=== PATIENT | female | born 1965 | race Caucasian/White ===

== ENCOUNTER → 2016-05-18 | Outpatient (CLI) | payer BC ==
[2016-05-18 10:31] LABS: APPEARANCE,URINE SLIGHTLY-CLOUDY; BILIRUBIN,URINE NEGATIVE (NEGATIVE); GLUCOSE, URINE NEGATIVE (NEGATIVE); KETONES,URINE NEGATIVE (NEGATIVE); LEUKOCYTE ESTERASE,URINE SMALL (NEGATIVE); NITRITE,URINE NEGATIVE (NEGATIVE); PROTEIN,URINE NEGATIVE (NEGATIVE); URINE SPECIFIC GRAVITY 1.021; UROBILINOGEN,URINE NEGATIVE mg/dL (<2.0)
[2016-05-18 10:34] LABS: ABSOLUTE LYMPHOCYTES (AUTO) 0.9 10^3/uL (0.5-4.7); ABSOLUTE MONOCYTES (AUTO) 0.3 10^3/uL (0.1-1.4); ABSOLUTE NEUT (AUTO) 12.1 10^3/uL (1.7-8.2); BASOPHILS % (AUTO) 0.1 % (0-2); HEMATOCRIT 41.3 % (36.0-47.0); HGB HCT DIFFERENCE -2.3; LYMPHOCYTES % (AUTO) 7.1 % (13-45); MEAN CORPUSCULAR HEMOGLOBIN 27.2 pg (27.0-33.4); MEAN CORPUSCULAR HGB CONC 31.6 g/dL (32.0-36.0); MEAN CORPUSCULAR VOLUME 86 fl (80-97); RED CELL DISTRIBUTION WIDTH 14.3 % (11.5-14.0); SEGMENTED NEUTROPHILS % (AUTO) 90.8 % (42-78); WHITE BLOOD COUNT 13.3 10^3/uL (4.0-10.5)
[2016-05-18 10:51] LABS: ANION GAP 14 (5-19); BLOOD UREA NITROGEN 17 mg/dL (7-20); CARBON DIOXIDE 21 mmol/L (22-30); CHLORIDE 107 mmol/L (98-107); CREATININE RESULT 0.73 mg/dL (0.52-1.25); GLUCOSE 126 mg/dL (75-110); POTASSIUM 4.8 mmol/L (3.6-5.0)
--- NOTE | 2016-05-18 14:58 | EKG REPORT ---
SEVERITY:- NORMAL ECG - SINUS RHYTHM : Confirmed by: Vivian Branch MD 18-May-2016 14:58:05
== END ==
LOC: OD 09:15
PROVIDERS: ATTEND Orthopaedic Surgery
DX: Z01.810 Encounter for preprocedural cardiovascular examination (principal); Z01.811 Encounter for preprocedural respiratory examination; Z01.818 Encounter for other preprocedural examination; M17.12 Unilateral primary osteoarthritis, left knee; Z79.899 Other long term (current) drug therapy
CPT/HCPCS: 36415; 71020; 80048; 81001; 85025; 93005; 93010

== ENCOUNTER 2016-06-27 08:21 | Inpatient (IN) | payer BC ==
[2016-06-15 10:37] LABS: APPEARANCE,URINE SLIGHTLY-CLOUDY; BILIRUBIN,URINE NEGATIVE (NEGATIVE); GLUCOSE, URINE NEGATIVE (NEGATIVE); KETONES,URINE NEGATIVE (NEGATIVE); LEUKOCYTE ESTERASE,URINE SMALL (NEGATIVE); NITRITE,URINE NEGATIVE (NEGATIVE); PROTEIN,URINE NEGATIVE (NEGATIVE); URINE SPECIFIC GRAVITY 1.018; UROBILINOGEN,URINE NEGATIVE mg/dL (<2.0)
[2016-06-15 10:40] LABS: HEMATOCRIT 39.8 % (36.0-47.0); HEMOGLOBIN 13.3 g/dL (12.0-15.5); HGB HCT DIFFERENCE 0.1; MEAN CORPUSCULAR HEMOGLOBIN 28.9 pg (27.0-33.4); MEAN CORPUSCULAR HGB CONC 33.3 g/dL (32.0-36.0); MEAN CORPUSCULAR VOLUME 87 fl (80-97); RED BLOOD COUNT 4.59 10^6/uL (3.72-5.28); RED CELL DISTRIBUTION WIDTH 14.8 % (11.5-14.0); WHITE BLOOD COUNT 9.8 10^3/uL (4.0-10.5)
[2016-06-15 10:43] LABS: ANION GAP 11 (5-19); BLOOD UREA NITROGEN 14 mg/dL (7-20); CALCIUM 9.6 mg/dL (8.4-10.2); CARBON DIOXIDE 27 mmol/L (22-30); CHLORIDE 105 mmol/L (98-107); CREATININE RESULT 0.84 mg/dL (0.52-1.25); GLUCOSE 102 mg/dL (75-110); POTASSIUM 4.3 mmol/L (3.6-5.0); SODIUM 142.7 mmol/L (137-145)
[~2016-06-27 08:21] MED LIST: BUPIVACAINE INJ/PF LIPOSOME/PF 266 MG/20 ML SDV INFIL PRN; CEFAZOLIN INJ 1 GM VIAL IV PRN; IBUPROFEN 800 MG in NORMAL SALINE 250 ML IV PRN; LACTATED RINGERS 1000 ML IV PRN; LANSOPRAZOLE 15 MG TAB.RAP.DR PO PRN; LIDOCAINE 0.5% INJ-PF (5 MG/ML) 50 ML SDV SUBCUT PRN; OXYCODONE HCL SR 10 MG TABLET PO PRN; SCOPOLAMINE HYDROBROMIDE 1.5 MG PATCH.TD72 TD PRN; VANCOMYCIN HCL 1,000 MG in DEXTROSE 5%-WATER 250 ML IV PRN
[2016-06-27] MEDS ORDERED: LIDOCAINE 2% INJ-PF (20 MG/ML) 10 ML AMPUL ONE (08:32)
[2016-06-27 09:18] LABS: PROTHROMBIN TIME 13.4 SEC (11.4-15.4)
[2016-06-27 09:19] LABS: PARTIAL THROMBOPLASTIN TIME 30.3 SEC (23.5-35.8)
[2016-06-27] MEDS ORDERED: FENTANYL CITRATE INJ/PF 100 MCG/2 ML AMPUL ONE (10:41)
[2016-06-27] MEDS ORDERED: MIDAZOLAM 2 MG/2 ML INJ ONE (10:41)
[2016-06-27] MEDS ORDERED: PROPOFOL INJ 200 MG/20 ML VIAL IV ONE (10:42)
[2016-06-27] MEDS ORDERED: DEXMEDETOMIDINE INJ 80 MCG/20 ML VIAL IV ONE (10:42)
[2016-06-27] MEDS ORDERED: EPHEDRINE SULFATE INJ 50 MG/1 ML AMPULE ONE (10:42)
[2016-06-27] MEDS ORDERED: TRANEXAMIC ACID INJ/PF 1,000 MG/10 ML SDV IV ONE ×3 (10:42→14:00)
[2016-06-27] MEDS ORDERED: THROMBIN (BOVINE) TOPICAL 20000 UNIT VIAL ONE (11:15)
[2016-06-27] MEDS ORDERED: BUPIVACAINE INJ/PF LIPOSOME/PF 266 MG/20 ML SDV ONE (11:15)
[2016-06-27] MEDS ORDERED: THROMBIN (BOVINE) TOPICAL 5000 UNIT VIAL ONE (11:16)
[2016-06-27] MEDS ORDERED: MEPERIDINE HCL/PF INJ 25 MG/1 ML DISP.SYRIN IV PRN (12:43)
[2016-06-27] MEDS ORDERED: PROMETHAZINE HCL INJ 25 MG/1 ML VIAL IV PRN ×2 (12:43)
[2016-06-27] MEDS ORDERED: DIPHENHYDRAMINE HCL 50 MG/ML VIAL IV PRN ×2 (12:43→13:25)
[2016-06-27] MEDS ORDERED: FENTANYL CITRATE INJ/PF 100 MCG/2 ML AMPUL IV PRN ×3 (12:43)
[2016-06-27] MEDS ORDERED: OXYCODONE-ACETAMINOPHEN 5-325 MG TABLET PO PRN ×2 (12:43)
[2016-06-27] MEDS ORDERED: MORPHINE SULFATE 10 MG/ML INJ IV PRN ×4 (12:43→13:25)
--- NOTE | 2016-06-27 13:24 | Operative Report ---
Operative Report DATE OF SURGERY: 06/27/16 PREOPERATIVE DIAGNOSIS: Right knee arthritis OPERATION: Right knee arthroplasty SURGEON: JONATHON PERDOMO ANESTHESIA: Spinal TISSUE REMOVED OR ALTERED: Bone to pathology ESTIMATED BLOOD LOSS: 150 PROCEDURE: Implants used: Femur: Striker #4 CR femur Tibia:, #3 tibia Tibial liner:, 13 mm CS insert Patella: 29 mm oval patella Procedure with the patient supine on the operating table the right the limb is prepped and draped in a sterile fashion. The limb was elevated for exsanguination and the tourniquet inflated to 280 torr. A standard midline median parapatellar approach the knee is taken. Access is gained to the femoral canal through the intercondylar notch. Intramedullary alignment instrumentation used to resect 10 mm of distal femur in 5 of valgus. Sizing guide indicated a size for femur. Appropriate cutting jig is then used to fashion anterior posterior and chamfer cuts. A trial reduction femurs performed and this is judged to be adequate. Attention was next turned to the tibia. Using an extra medullary alignment system 9 millimeters was resected off the lateral tibial plateau. This is sized to a size 3 tibia. A trial reduction was now performed with a 4 femur and 3 tibia using a 13 millimeters spacer. A lateral patellar release is performed. It is full extension and central patellofemoral tracking. The articular surface the patella was next resected using an oscillating saw. All trial implants were removed. Polymethylmethacrylate is mixed and used to cement the above implants in place. On adequate curing the cement excess cement was removed the tourniquet was deflated hemostasis obtained the wound is then closed in layers using interrupted Vicryl followed by mehdi. A sterile compressive dressing was applied and the patient returned to recovery room in satisfactory condition.
[2016-06-27] MEDS ORDERED: ONDANSETRON 4 MG TAB.RAPDIS PO PRN (13:25)
[2016-06-27] MEDS ORDERED: MAG HYDROX/AL HYDROX/SIMETH SUSP 30 ML UDCUP PO PRN (13:25)
[2016-06-27] MEDS ORDERED: ONDANSETRON HCL INJ/PF 4 MG/2 ML SDV IV PRN (13:25)
[2016-06-27] MEDS: FENTANYL CITRATE INJ/PF 100 MCG/2 ML AMPUL ONE ×2 (14:00→15:01)
[2016-06-27] MEDS: IBUPROFEN 800 MG in NORMAL SALINE 250 ML IV SCH (17:36)
[2016-06-27] MEDS: SENNOSIDES/DOCUSATE 8.6-50 MG 1 EACH TABLET PO SCH (17:37)
[2016-06-27] MEDS: AMLODIPINE BESYLATE 5 MG TABLET PO SCH (17:37)
[2016-06-27] MEDS: OXYCODONE HCL IR 5 MG TABLET PO PRN (19:42)
[2016-06-27] MEDS: RINGERS SOLUTION,LACTATED 1,000 ML IV PRN ×2 (21:14→22:53)
[2016-06-27] MEDS: RIVAROXABAN 10 MG TABLET PO SCH (21:15)
[2016-06-27] MEDS: OXYCODONE HCL SR 10 MG TABLET PO SCH (21:15)
[2016-06-27] MEDS: GABAPENTIN 300 MG CAPSULE PO SCH (21:15)
[2016-06-27] MEDS: MORPHINE SULFATE 10 MG/ML INJ IM PRN (22:55)
[2016-06-28] MEDS ORDERED: VANCOMYCIN HCL 1,000 MG in DEXTROSE 5%-WATER 250 ML IV ONE (01:30)
[2016-06-28] MEDS: IBUPROFEN 800 MG in NORMAL SALINE 250 ML IV SCH ×2 (01:56→10:03)
[2016-06-28] MEDS: MORPHINE SULFATE 10 MG/ML INJ IM PRN ×5 (04:15→23:50)
[2016-06-28] MEDS: LANSOPRAZOLE 30 MG TAB.RAP.DR PO SCH (05:13)
[2016-06-28 05:28] LABS: HEMATOCRIT 33.1 % (36.0-47.0); HEMOGLOBIN 10.9 g/dL (12.0-15.5); HGB HCT DIFFERENCE -0.4; MEAN CORPUSCULAR HEMOGLOBIN 28.8 pg (27.0-33.4); MEAN CORPUSCULAR HGB CONC 33.1 g/dL (32.0-36.0); MEAN CORPUSCULAR VOLUME 87 fl (80-97); RED CELL DISTRIBUTION WIDTH 14.5 % (11.5-14.0); WHITE BLOOD COUNT 17.4 10^3/uL (4.0-10.5)
[2016-06-28 05:57] LABS: ANION GAP 12 (5-19); BLOOD UREA NITROGEN 8 mg/dL (7-20); CALCIUM 8.5 mg/dL (8.4-10.2); CARBON DIOXIDE 24 mmol/L (22-30); CHLORIDE 102 mmol/L (98-107); CREATININE RESULT 0.67 mg/dL (0.52-1.25); GLUCOSE 120 mg/dL (75-110); POTASSIUM 3.8 mmol/L (3.6-5.0); SODIUM 137.9 mmol/L (137-145)
--- NOTE | 2016-06-28 07:14 | PDOC PROGRESS REPORT ---
Subjective Progress Note for:: 06/28/16 Subjective:: Patient complains of overwhelming pain Physical Exam Vital Signs: Temp Pulse Resp BP Pulse Ox 36.7 C 91 18 95/81 L 95 06/28/16 04:43 06/28/16 04:43 06/28/16 04:43 06/28/16 04:43 06/28/16 04:43 Intake & Output 06/27/16 06/28/16 06/29/16 06:59 06:59 06:59 Intake Total 6898 Output Total 4910 Balance 1988 General appearance: PRESENT: mild distress, obese Head exam: PRESENT: normocephalic Eye exam: PRESENT: EOMI Respiratory exam: PRESENT: unlabored Cardiovascular exam: PRESENT: RRR Pulses: PRESENT: +1 pedal pulses bilateral Vascular exam: PRESENT: normal capillary refill GI/Abdominal exam: PRESENT: soft Rectal exam: PRESENT: deferred Extremities exam: PRESENT: other - Right lower extremity dressing clean dry and intact. Distal neurovascular examinations intact. Neurological exam: PRESENT: alert, awake, oriented to person, oriented to place , oriented to time, oriented to situation, CN II-XII grossly intact. ABSENT: motor sensory deficit Psychiatric exam: PRESENT: appropriate affect, normal mood. ABSENT: homicidal ideation, suicidal ideation Skin exam: PRESENT: dry, intact, warm. ABSENT: cyanosis, rash Results Laboratory Results: 06/28/16 05:04 06/28/16 05:04 06/27/16 06/28/16 06/28/16 08:52 05:04 05:04 WBC 17.4 H RBC 3.80 Hgb 10.9 L Hct 33.1 L MCV 87 MCH 28.8 MCHC 33.1 RDW 14.5 H Plt Count 229 Sodium 137.9 Potassium 3.7 3.8 Chloride 102 Carbon Dioxide 24 Anion Gap 12 BUN 8 Creatinine 0.67 Est GFR ( Amer) > 60 Est GFR (Non-Af Amer) > 60 Glucose 120 H Calcium 8.5 Impressions: Knee X-Ray 06/27/16 13:26 IMPRESSION: SATISFACTORY POSTOPERATIVE RIGHT KNEE. Status: Imported from PACS Assessment & Plan - Diagnosis (1) Arthritis of right knee Is this a current diagnosis for this admission?: YesPlan: 50-year-old white female postop day 1 from right knee arthroplasty. She made limited progress with physical therapy, did not ambulate. Hematocrit remains above 33%. Plan will be for aggressive physical therapy today on weightbearing as tolerated basis. Anticipate discharge home tomorrow with home health nursing , home health physical therapy, we'll Walker, bedside commode. - Time Time Spent with patient: 15-24 minutes Anticipated discharge: Home with Homehealth Within: within 24 hours
[2016-06-28] MEDS: GABAPENTIN 300 MG CAPSULE PO SCH ×2 (10:01→21:37)
[2016-06-28] MEDS: CALCIUM CARBONATE 500 MG TABLET PO SCH (10:01)
[2016-06-28] MEDS: OXYCODONE HCL SR 10 MG TABLET PO SCH ×2 (10:01→21:38)
[2016-06-28] MEDS: FUROSEMIDE 20 MG TABLET PO SCH (10:02)
[2016-06-28] MEDS: VENLAFAXINE HCL 37.5 MG CAP.SR.24H PO SCH (10:02)
[2016-06-28] MEDS: SENNOSIDES/DOCUSATE 8.6-50 MG 1 EACH TABLET PO SCH ×2 (10:02→17:12)
[2016-06-28] MEDS: PRENATAL VITAMIN W-O CA NO5/FE FUMARATE/FA CAPSULE PO SCH (10:02)
[2016-06-28] MEDS: AMLODIPINE BESYLATE 5 MG TABLET PO SCH (17:17)
[2016-06-28] MEDS: RIVAROXABAN 10 MG TABLET PO SCH (21:37)
[2016-06-29] MEDS: LANSOPRAZOLE 30 MG TAB.RAP.DR PO SCH (05:19)
[2016-06-29] MEDS: MORPHINE SULFATE 10 MG/ML INJ IM PRN ×4 (06:02→23:08)
[2016-06-29 06:17] LABS: MEAN CORPUSCULAR HEMOGLOBIN 28.7 pg (27.0-33.4); MEAN CORPUSCULAR HGB CONC 33.5 g/dL (32.0-36.0); MEAN CORPUSCULAR VOLUME 86 fl (80-97); RED BLOOD COUNT 3.49 10^6/uL (3.72-5.28); RED CELL DISTRIBUTION WIDTH 14.3 % (11.5-14.0); WHITE BLOOD COUNT 16.6 10^3/uL (4.0-10.5)
--- NOTE | 2016-06-29 06:48 | PDOC PROGRESS REPORT ---
Subjective Progress Note for:: 06/29/16 Subjective:: Patient continues to complain of pain. Patient and physical therapy yesterday. Physical Exam Vital Signs: Temp Pulse Resp BP Pulse Ox 36.3 C 109 H 20 163/78 H 100 06/28/16 23:38 06/28/16 23:38 06/28/16 23:38 06/28/16 23:38 06/28/16 23:38 Intake & Output 06/27/16 06/28/16 06/29/16 06:59 06:59 06:59 Intake Total 6898 2195 Output Total 4910 200 Balance 1987 1994 General appearance: PRESENT: mild distress Head exam: PRESENT: normocephalic Eye exam: PRESENT: EOMI Respiratory exam: PRESENT: unlabored Cardiovascular exam: PRESENT: RRR Pulses: PRESENT: +1 pedal pulses bilateral Vascular exam: PRESENT: normal capillary refill GI/Abdominal exam: PRESENT: soft Rectal exam: PRESENT: deferred Extremities exam: PRESENT: other - Compressive wrap removed from the right lower extremity today. Henri dressing is clean dry and intact. So, neurovascular examinations intact. Skin exam: PRESENT: dry, intact, warm. ABSENT: cyanosis, rash Results Laboratory Results: 06/29/16 06:00 06/28/16 05:04 06/29/16 06:00 WBC 16.6 H RBC 3.49 L Hgb 10.0 L Hct 30.0 L MCV 86 MCH 28.7 MCHC 33.5 RDW 14.3 H Plt Count 212 Impressions: Knee X-Ray 06/27/16 13:26 IMPRESSION: SATISFACTORY POSTOPERATIVE RIGHT KNEE. Status: Imported from PACS Assessment & Plan - Diagnosis (1) Arthritis of right knee Is this a current diagnosis for this admission?: YesPlan: 50-year-old white female status post right knee arthroplasty with an uneventful postoperative course other than her complaints of pain which limited her participation physical therapy. Yesterday she ambulates only 30 feet. In light of this I think it may be better if she were referred to rehabilitation facility [facility] going home with home health nursing. - Time Time Spent with patient: 15-24 minutes Anticipated discharge: SNF Within: within 24 hours
[2016-06-29] MEDS: CALCIUM CARBONATE 500 MG TABLET PO SCH (08:21)
[2016-06-29] MEDS: PRENATAL VITAMIN W-O CA NO5/FE FUMARATE/FA CAPSULE PO SCH (09:15)
[2016-06-29] MEDS: GABAPENTIN 300 MG CAPSULE PO SCH ×2 (09:16→21:33)
[2016-06-29] MEDS: SENNOSIDES/DOCUSATE 8.6-50 MG 1 EACH TABLET PO SCH ×2 (09:16→17:05)
[2016-06-29] MEDS: OXYCODONE HCL SR 10 MG TABLET PO SCH (09:16)
[2016-06-29] MEDS: VENLAFAXINE HCL 37.5 MG CAP.SR.24H PO SCH (09:16)
[2016-06-29] MEDS: FUROSEMIDE 20 MG TABLET PO SCH (09:16)
[2016-06-29] MEDS: AMLODIPINE BESYLATE 5 MG TABLET PO SCH (17:05)
[2016-06-29] MEDS: OXYCODONE HCL IR 5 MG TABLET PO PRN (20:04)
[2016-06-29] MEDS: RIVAROXABAN 10 MG TABLET PO SCH (21:33)
[2016-06-30] MEDS: MORPHINE SULFATE 10 MG/ML INJ IM PRN ×2 (05:18→09:31)
[2016-06-30 06:04] LABS: HEMATOCRIT 27.8 % (36.0-47.0); HEMOGLOBIN 9.2 g/dL (12.0-15.5); HGB HCT DIFFERENCE -0.2; MEAN CORPUSCULAR HEMOGLOBIN 28.6 pg (27.0-33.4); MEAN CORPUSCULAR HGB CONC 33.2 g/dL (32.0-36.0); MEAN CORPUSCULAR VOLUME 86 fl (80-97); RED BLOOD COUNT 3.23 10^6/uL (3.72-5.28); RED CELL DISTRIBUTION WIDTH 14.4 % (11.5-14.0); WHITE BLOOD COUNT 11.8 10^3/uL (4.0-10.5)
[2016-06-30] MEDS: LANSOPRAZOLE 30 MG TAB.RAP.DR PO SCH (06:25)
--- NOTE | 2016-06-30 06:46 | PDOC DISCHARGE SUMMARY ---
General - Admit/Disc Date/PCP Admission Date/Primary Care Provider: 06/27/16 08:21 EMILY DIAZ Discharge Date: 06/30/16 - Discharge Diagnosis (1) Arthritis of right knee Is this a current diagnosis for this admission?: Yes - Additional Information Resuscitation Status: Full Code Discharge Diet: As Tolerated, Regular Discharge Activity: Activity As Tolerated, Balance Activity w/Rest, No Driving, No tub bath Home Medications: Amlodipine Besylate [Norvasc 5 mg Tablet] 5 mg PO QPM 01/13/16 Calcium Carbonate [Calcium] 500 mg PO QAM 01/13/16 Clopidogrel Bisulfate [Plavix] 75 mg PO QAM 01/13/16 Furosemide [Lasix 20 mg Tablet] 20 mg PO QAM 01/13/16 Gabapentin [Neurontin] 600 mg PO BID 01/13/16 Tramadol HCl 50 mg PO QPM 01/13/16 Venlafaxine HCl ER [Effexor Xr 37.5 mg Cap.sr] 37.5 mg PO QAM 01/13/16 Oxycodone HCl [Oxy-Ir 5 mg Tablet] 5 mg PO Q6HP PRN #0 tablet 06/30/16 Rivaroxaban [Xarelto 10 mg Tablet] 10 mg PO QHS #0 tablet 06/30/16 History of Present Illness History of Present Illness: KATLYN SHEEHAN is a 50 year old female who presents with progressive right knee pain and functional disability secondary osteoarthritis. She is admitted for elective right knee arthroplasty. Hospital Course Hospital Course: Patient is admitted through the operating room where she undergoes an uncomplicated right knee arthroplasty. She's returned to the floor in satisfactory condition. She has issues with adequate pain control which initially precluded meaningful participation with physical therapy. This was addressed during the first postoperative day and she was able to make more progress on the second day. Picot dressing is changed on postop day #3, and is clean dry and intact. Physical Exam Vital Signs: Temp Pulse Resp BP Pulse Ox 37.3 C 100 18 133/79 H 100 06/29/16 23:36 06/29/16 23:36 06/29/16 23:36 06/29/16 23:36 06/29/16 23:36 Intake & Output 06/28/16 06/29/16 06/30/16 06:59 06:59 06:59 Intake Total 6898 2195 1075 Output Total 4910 200 Balance 1987 1994 1074 General appearance: PRESENT: no acute distress Head exam: PRESENT: normocephalic Eye exam: PRESENT: EOMI Respiratory exam: PRESENT: unlabored Cardiovascular exam: PRESENT: RRR Pulses: PRESENT: +1 pedal pulses bilateral Vascular exam: PRESENT: normal capillary refill GI/Abdominal exam: PRESENT: soft Rectal exam: PRESENT: deferred Extremities exam: PRESENT: other - Right lower extremity dressing is clean dry and intact. This some ecchymosis about the knee. Distal neurovascular examinations intact. Neurological exam: PRESENT: alert, awake, oriented to person, oriented to place , oriented to time, oriented to situation. ABSENT: motor sensory deficit Psychiatric exam: PRESENT: appropriate affect, normal mood. ABSENT: homicidal ideation, suicidal ideation Skin exam: PRESENT: dry, intact, warm. ABSENT: cyanosis, rash Results Laboratory Results: 06/30/16 05:51 06/28/16 05:04 06/30/16 05:51 WBC 11.8 H RBC 3.23 L Hgb 9.2 L Hct 27.8 L MCV 86 MCH 28.6 MCHC 33.2 RDW 14.4 H Plt Count 191 Impressions: Knee X-Ray 06/27/16 13:26 IMPRESSION: SATISFACTORY POSTOPERATIVE RIGHT KNEE. Status: Imported from PACS Plan Discharge Plan: Patient to be discharged home with home health nursing, home health physical therapy, we'll Walker, bedside commode. Follow-up will be with Dr. Sanches in the [facility] for surgeon 2 weeks for staple removal. [place] her dressing can be changed by the visiting nurse service on postop day 7, 07/06/2016 and replace with an OpSite. Time Spent: Less than 30 Minutes
[2016-06-30 09:12] VITALS: BP 127/75
[2016-06-30] MEDS: PRENATAL VITAMIN W-O CA NO5/FE FUMARATE/FA CAPSULE PO SCH (09:30)
[2016-06-30] MEDS: FUROSEMIDE 20 MG TABLET PO SCH (09:30)
[2016-06-30] MEDS: GABAPENTIN 300 MG CAPSULE PO SCH (09:30)
[2016-06-30] MEDS: SENNOSIDES/DOCUSATE 8.6-50 MG 1 EACH TABLET PO SCH (09:30)
[2016-06-30] MEDS: CALCIUM CARBONATE 500 MG TABLET PO SCH (09:31)
[2016-06-30] MEDS: VENLAFAXINE HCL 37.5 MG CAP.SR.24H PO SCH (09:32)
== END 2016-06-30 11:20 | disposition home health service (06) | DRG 470 ==
LOC: INOR 08:21 → 4S 13:50
PROVIDERS: ADMIT Orthopaedic Surgery; ATTEND Orthopaedic Surgery
PROC: 0SRC0J9 Replacement of Right Knee Joint with Synthetic Substitute, Cemented, Open Approach (ICD-10-PCS; principal; 2016-06-27 10:45)
DX: M17.11 Unilateral primary osteoarthritis, right knee (principal); Z68.41 Body mass index [BMI] 40.0-44.9, adult; I48.91 Unspecified atrial fibrillation; I10 Essential (primary) hypertension; N39.3 Stress incontinence (female) (male); I25.10 Atherosclerotic heart disease of native coronary artery without angina pectoris; E66.01 Morbid (severe) obesity due to excess calories; E78.5 Hyperlipidemia, unspecified; E78.00 Pure hypercholesterolemia, unspecified; Z86.73 Personal history of transient ischemic attack (TIA), and cerebral infarction without residual deficits; G47.00 Insomnia, unspecified; K21.9 Gastro-esophageal reflux disease without esophagitis; G62.9 Polyneuropathy, unspecified; Z79.899 Other long term (current) drug therapy; Z79.02 Long term (current) use of antithrombotics/antiplatelets; R29.6 Repeated falls; Z90.710 Acquired absence of both cervix and uterus; Z90.49 Acquired absence of other specified parts of digestive tract
CPT/HCPCS: 01402; 36415; 80048; 81001; 82962; 84132; 85027; 85610; 85730; 88305; 88311; 94799; C9290; J0690; J1741; J2250; J2270; J2550; J2704; J3010; J3370; J3490; J7050; J7060; J7120; S0119

== ENCOUNTER 2019-03-21 20:55 | Emergency (ER) | payer BC, OTHER ==
[2019-03-21] MEDS ORDERED: DIPH/PERTUSS(ACELL)/TETANUS VAC/PF 0.5 ML SYR (>=10YO) IM ONE (21:09)
[2019-03-21] MEDS ORDERED: FENTANYL CITRATE INJ/PF 100 MCG/2 ML AMPUL IV ONE (21:09)
[2019-03-21] MEDS ORDERED: AMPICILLIN SOD/SULBACTAM 3 GM VIAL IV ONE (21:09)
--- NOTE | 2019-03-21 21:11 | ER Document Report ---
ED Medical Screen (RME) - General Chief Complaint: Cat Bite Stated Complaint: CAT BITE Time Seen by Provider: 03/21/19 21:08 Primary Care Provider: EMILY DIAZ MD [Primary Care Provider] - Follow up as needed Notes: Patient is a 53-year-old female voices a cat bite to her right ring and pinky finger approximately 24 hours ago. Noted redness, swelling, discharge noted. Patient voices she is unsure when her last tetanus was. States the cat is up-to-date on its immunizations and is currently being quarantined. GENERAL: Alert, interacts well. No acute distress. SKIN: Warm, dry, normal turgor. Significant redness and swelling noted to right pinky and ring finger. Multiple puncture wounds noted. Patient is unable to make a full fist with the right hand. Capillary refill all 5 fingers right hand less than 2 seconds. I have greeted and performed a rapid initial assessment of this patient. A comprehensive ED assessment and evaluation of the patient, analysis of test results and completion of the medical decision making process will be conducted by additional ED providers. I have specifically instructed the patient or family members with the patient to immediately return to any nursing staff should anything change in the patient's condition or with their chief complaint. This medical record was dictated with voice recognizing software. There may be grammatical, syntax errors that are unintended. TRAVEL OUTSIDE OF THE [place] IN LAST 30 DAYS: No - Related Data Allergies/Adverse Reactions: No Known Allergies Allergy (Unverified 03/21/19 21:05) Past Medical History - Past Medical History Cardiac Medical History: Reports: Hx Atrial Fibrillation, Hx Coronary Artery Disease, Hx Hypercholesterolemia, Hx Hypertension - 3 years-takes meds Denies: Hx Congestive Heart Failure, Hx Heart Attack, Hx Peripheral Vascular Disease, Hx Pulmonary Embolism, Hx Heart Murmur Pulmonary Medical History: Reports: Hx Pneumonia - hx Walking Pneumonia-15 yrs ago Denies: Hx Asthma, Hx Bronchitis, Hx COPD, Hx Respiratory Failure, Hx Sleep Apnea, Hx Tuberculosis Neurological Medical History: Reports: Hx Cerebrovascular Accident - about 5 years ago, left sided weakness. Denies: Hx Seizures, Hx Parkinson's Disease Renal/ Medical History: Denies: Hx End Stage Renal Disease, Hx Kidney Stones, Hx Ovarian Cysts, Hx Peritoneal Dialysis, Hx Pelvic Inflammatory Disease Malignancy Medical History: Denies: Hx Breast Cancer, Hx Cervical Cancer, Hx Lung Cancer, Hx Ovarian Cancer Musculoskeltal Medical History: Reports Hx Arthritis, Denies Hx Fibromyalgia, Denies Hx Multiple Sclerosis, Denies Hx Muscular Dystrophy Psychiatric Medical History: Reports: Hx Depression Denies: Hx Bipolar Disorder, Hx Dementia, Hx Post Traumatic Stress Disorder, Hx Schizophrenia Traumatic Medical History: Denies: Hx Fractures Past Surgical History: Reports: Hx Appendectomy, Hx Section, Hx Hysterectomy. Denies: Hx Bowel Surgery, Hx Cholecystectomy, Hx Coronary Artery Bypass Graft, Hx Gastric Bypass Surgery, Hx Herniorrhaphy, Hx Mastectomy, Hx Pacemaker, Hx Tonsillectomy, Hx Tubal Ligation Physical Exam - Vital signs Vitals: Temp Pulse Resp BP Pulse Ox 98.4 F 79 18 141/63 H 98 03/21/19 21:09 03/21/19 21:09 03/21/19 21:09 03/21/19 21:09 03/21/19 21:09 Course - Vital Signs Vital signs: Temp Pulse Resp BP Pulse Ox 98.4 F 79 18 141/63 H 98 03/21/19 21:09 03/21/19 21:09 03/21/19 21:09 03/21/19 21:09 03/21/19 21:09 Doctor's Discharge - Discharge Referrals: EMILY DIAZ MD [Primary Care Provider] - Follow up as needed
[2019-03-21 21:42] LABS: ABSOLUTE EOSINOPHILS # (AUTO) 0.3 10^3/uL (0.0-0.6); ABSOLUTE LYMPHOCYTES (AUTO) 1.9 10^3/uL (0.5-4.7); ABSOLUTE MONOCYTES (AUTO) 0.6 10^3/uL (0.1-1.4); ABSOLUTE NEUT (AUTO) 8.7 10^3/uL (1.7-8.2); BASOPHILS % (AUTO) 0.4 % (0-2); EOSINOPHILS % (AUTO) 2.6 % (0-6); HEMATOCRIT 39.5 % (36.0-47.0); HEMOGLOBIN 13.4 g/dL (12.0-15.5); LYMPHOCYTES % (AUTO) 16.6 % (13-45); MEAN CORPUSCULAR HEMOGLOBIN 29.8 pg (27.0-33.4); MEAN CORPUSCULAR HGB CONC 33.9 g/dL (32.0-36.0); MEAN CORPUSCULAR VOLUME 88 fl (80-97); MONOCYTES % (AUTO) 4.9 % (3-13); PLATELET COUNT 249 10^3/uL (150-450); RED CELL DISTRIBUTION WIDTH 13.5 % (11.5-14.0); SEGMENTED NEUTROPHILS % (AUTO) 75.5 % (42-78); TOTAL CELLS COUNTED % (AUTO) 100 %; WHITE BLOOD COUNT 11.6 10^3/uL (4.0-10.5)
[2019-03-21 21:59] LABS: ANION GAP 10 (5-19); BLOOD UREA NITROGEN 19 mg/dL (7-20); CALCIUM 9.7 mg/dL (8.4-10.2); CARBON DIOXIDE 25 mmol/L (22-30); CHLORIDE 108 mmol/L (98-107); GLUCOSE 99 mg/dL (75-110); POTASSIUM 3.8 mmol/L (3.6-5.0)
[2019-03-21] MEDS ORDERED: KETOROLAC TROMETHAMINE INJ/PF 30 MG/1 ML SDV IV ONE (23:44)
[2019-03-21] MEDS ORDERED: HYDROCODONE/ACETAMINOPHEN 5-325 MG (6 TAB/ER DISP) PO PRN (23:44)
[2019-03-21] MEDS ORDERED: RABIES VACCINE (PCEC)/PF 2.5 UNIT/1 ML KIT IM ONE (23:44)
[2019-03-21] MEDS ORDERED: RABIES IMMUNE GLOBULIN INJ/PF 300 UNIT/ML VIAL IM ONE (23:44)
--- NOTE | 2019-03-21 23:53 | ER Document Report ---
ED General - General Chief Complaint: Cat Bite Stated Complaint: CAT BITE Time Seen by Provider: 03/21/19 21:08 Primary Care Provider: EMILY DIAZ MD [Primary Care Provider] - Follow up as needed TRAVEL OUTSIDE OF THE [place] IN LAST 30 DAYS: No - HPI Notes: Patient is a 53-year-old female, [id number], who presents emergency department for evaluation approximately 28 hours after a cat bite to the right hand. 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 She was bitten by a kitten. She is unsure as to where the kitten came from. Is currently being quarantined. The patient did note that the cat had been given rabies vaccine, but only within 24 hours of her being bitten. She does note that her pain has gotten worse, the swelling is gotten worse, but she denies any fevers or chills. No nausea or vomiting. She is able to move her fingers without difficulty, alth ough the swelling does interfere slightly per the patient. She states her tetanus is not up-to-date. - Related Data Allergies/Adverse Reactions: No Known Allergies Allergy (Unverified 03/21/19 21:05) Home Medications: Ambien 10 mg nightly as needed Past Medical History - General Information source: Patient - Social History Smoking Status: Never Smoker Family History: Reviewed & Not Pertinent Patient has suicidal ideation: No Patient has homicidal ideation: No - Past Medical History Cardiac Medical History: Reports: Hx Atrial Fibrillation, Hx Coronary Artery Disease, Hx Hypercholesterolemia, Hx Hypertension - 3 years-takes meds Denies: Hx Congestive Heart Failure, Hx Heart Attack, Hx Peripheral Vascular Disease, Hx Pulmonary Embolism, Hx Heart Murmur Pulmonary Medical History: Reports: Hx Pneumonia - hx Walking Pneumonia-15 yrs ago Denies: Hx Asthma, Hx Bronchitis, Hx COPD, Hx Respiratory Failure, Hx Sleep Apnea, Hx Tuberculosis Neurological Medical History: Reports: Hx Cerebrovascular Accident - about 5 years ago, left sided weakness. Denies: Hx Seizures, Hx Parkinson's Disease Renal/ Medical History: Denies: Hx End Stage Renal Disease, Hx Kidney Stones, Hx Ovarian Cysts, Hx Peritoneal Dialysis, Hx Pelvic Inflammatory Disease Malignancy Medical History: Denies: Hx Breast Cancer, Hx Cervical Cancer, Hx Lung Cancer, Hx Ovarian Cancer Musculoskeletal Medical History: Reports Hx Arthritis, Denies Hx Fibromyalgia, Denies Hx Multiple Sclerosis, Denies Hx Muscular Dystrophy Psychiatric Medical History: Reports: Hx Depression Denies: Hx Bipolar Disorder, Hx Dementia, Hx Post Traumatic Stress Disorder, Hx Schizophrenia Traumatic Medical History: Denies: Hx Fractures Past Surgical History: Reports: Hx Appendectomy, Hx Section, Hx Hysterectomy. Denies: Hx Bowel Surgery, Hx Cholecystectomy, Hx Coronary Artery Bypass Graft, Hx Gastric Bypass Surgery, Hx Herniorrhaphy, Hx Mastectomy, Hx Pacemaker, Hx Tonsillectomy, Hx Tubal Ligation - Immunizations Hx Pneumococcal Vaccination: 04/24/06 Review of Systems - Review of Systems Constitutional: No symptoms reported EENT: No symptoms reported Cardiovascular: No symptoms reported Respiratory: No symptoms reported Gastrointestinal: No symptoms reported Genitourinary: No symptoms reported Musculoskeletal: See HPI Skin: See HPI Neurological/Psychological: See HPI Physical Exam - Vital signs Vitals: Temp Pulse Resp BP Pulse Ox 98.4 F 79 18 141/63 H 98 03/21/19 21:09 03/21/19 21:09 03/21/19 21:09 03/21/19 21:09 03/21/19 21:09 - Notes Notes: Vital signs reviewed, please refer to chart. Head is normocephalic, atraumatic. Pupils equal round, reactive to light. Neck is supple without meningismus. Heart is regular. Lungs are clear to auscultation bilaterally. Peripheral pulses are equal. Examination of the right upper extremity yields a moderate amount of edema and erythema to the distal phalanges of the right fourth and fifth digits. Sensation is intact. There is a single puncture wound on the palmar aspect of the fifth distal phalanx, 2 puncture wounds on the distal asp ect of the fourth. She is full range of motion at the PIP, DIP, MCP. Radial pulse 2+. Erythema tracks down the finger to the metacarpophalangeal joints of both digits. Course - Re-evaluation Re-evalutation: 03/21/19 23:53 Patient presents emergency department for evaluation. She sustained a cat bite, and she does seem to have a significant infection at this time. She is not showing any signs of flexor tenosynovitis at this point. She is given IV Unasyn. Laboratory of this lesions are obtained. Her tetanus is updated. Given the nature of her job, the unknown origin of the cat, it was decided to immunize the patient with rabies vaccine, as well as administer immunoglobulin. Given the swelling in her fingers, I do believe this should not be administered to the local wound site itself. Patient will be sent home with a small amount of pain medicine, is given Toradol here. She is return to the ED with worsening or new concerning symptoms of any sort. - Vital Signs Vital signs: Temp Pulse Resp BP Pulse Ox 98.4 F 75 20 135/65 H 98 03/22/19 01:15 03/22/19 01:15 03/22/19 01:15 03/22/19 01:15 03/22/19 01:15 - Laboratory Result Diagrams: 03/21/19 21:15 03/21/19 21:15 Laboratory results interpreted by me: 03/21/19 03/21/19 21:15 21:15 WBC 11.6 H Absolute Neuts (auto) 8.7 H Chloride 108 H Discharge - Discharge Clinical Impression: Cat bite of finger, Cellulitis of multiple sites of right hand and fingers Condition: Stable Disposition: HOME, SELF-CARE Instructions: Cellulitis ([facility]) Additional Instructions: Please take all of the Augmentin as prescribed until gone, starting tomorrow morning. Use the [place] as needed for severe pain, watch for dizziness and constipation with this medication. Use [id number] ibuprofen, with food, for moderate pain. Please return as noted for nurse's visits to complete the rabies vaccination schedule. If you develop fever, vomiting, increased redness, red streaks, increased pain, numbness, or any other new or concerning symptoms, please return immediately to the emergency department for evaluation. Prescriptions: Amox Tr/Potassium Clavulanate [Augmentin 875-125 Tablet] 1 tab PO BID 10 Days #20 tablet Referrals: EMILY DIAZ MD [Primary Care Provider] - Follow up as needed
[2019-03-22 01:16] VITALS: BP 135/65
== END 2019-03-22 01:10 | disposition home or self-care (01) ==
LOC: ER 20:55
DX: S61.451A Open bite of right hand, initial encounter (principal); L03.011 Cellulitis of right finger; L03.113 Cellulitis of right upper limb; W55.01XA Bitten by cat, initial encounter; I48.91 Unspecified atrial fibrillation; I25.10 Atherosclerotic heart disease of native coronary artery without angina pectoris; I10 Essential (primary) hypertension; Z79.899 Other long term (current) drug therapy
CPT/HCPCS: 99283; 96372; 90471; 90472; 96375; 96365; 36415; 87040; 85025; 80048; 90715; 90675; 90376; J0295; J1885